=== PATIENT | female | born 1990 | race Caucasian/White ===

== ENCOUNTER → 2018-05-15 | Outpatient (CLI) | payer BC | LOC: COL.RAD 07:24 | DX: Q51.4 Unicornate uterus (principal); Z90.721 Acquired absence of ovaries, unilateral | CPT/HCPCS: A9585 ==

== ENCOUNTER 2018-12-25 07:01 | Outpatient (CLI) | payer BC ==
[~2018-12-25] VITALS: Ht 162.6 cm; Wt 89.0 kg
[2018-12-25 07:17] VITALS: BP 127/78; PULSE 87; TEMP 98.2
[2018-12-25] MEDS ORDERED: JUNEL FE 1/20 21 TAB PO (07:19)
[2018-12-25] MEDS ORDERED: MULTIPLE VITAMI1 TA5 PO (07:20)
--- NOTE | 2018-12-25 09:08 | NUR ---
Pt juanita ACTH stim test well. Pt discharged per ambulation with .
[2018-12-26 12:39] LABS: ADRENOCORTICOTROPIC HORMONE 68 pg/mL (())
== END 2018-12-25 09:08 | disposition home or self-care (01) ==
LOC: EUO 07:01
PROVIDERS: Family Medicine
DX: R79.89 Other specified abnormal findings of blood chemistry (principal)
CPT/HCPCS: J0834

== ENCOUNTER → 2018-12-26 | Outpatient (CLI) | payer BC ==
[~2018-12-26] MED LIST: JUNEL FE 1/20 21 TAB PO; MULTIPLE VITAMI1 TA5 PO
== END ==
LOC: COL.RAD 07:39
DX: D35.2 Benign neoplasm of pituitary gland (principal); D34 Benign neoplasm of thyroid gland; E05.80 Other thyrotoxicosis without thyrotoxic crisis or storm
CPT/HCPCS: A9585

== ENCOUNTER → 2020-01-02 | Outpatient (CLI) | payer BC | LOC: COL.RAD 12:33 | DX: Z31.41 Encounter for fertility testing (principal) | CPT/HCPCS: Q9967 ==

== ENCOUNTER → 2021-03-18 | Outpatient (CLI) | payer BC ==
[~2021-03-18] MED LIST changes: +IBU600 MG PO; +OMEGA-3 1000 MG1 CAP PO; +OSCAL 500 TAB500 MG PO; +PERCOCET 325 MG1 TA2 PO; +PRENATAL MVI PO; +SYNTHROID0.088 MG/T PO; +VITAMIN D31000 I1 PO
== END ==
LOC: ZCOL.LAB 07:10
DX: Z20.822 Contact with and (suspected) exposure to COVID-19 (principal)

== ENCOUNTER 2021-03-23 07:15 | Inpatient (IN) | payer BC ==
[2021-03-23] VITALS (7 sets, daily range): BP systolic 120–142; BP diastolic 63–88; PULSE 82–104; TEMP 98.1
[~2021-03-23] VITALS: Ht 162.6 cm; Wt 96.8 kg
[~2021-03-23 07:15] MED LIST changes: -IBU600 MG PO; -OMEGA-3 1000 MG1 CAP PO; -OSCAL 500 TAB500 MG PO; -PERCOCET 325 MG1 TA2 PO; -PRENATAL MVI PO; -SYNTHROID0.088 MG/T PO; -VITAMIN D31000 I1 PO
--- NOTE | 2021-03-23 19:00 | NUR ---
G1L0. 40.2. Ambulatory to LDR 5 with spouse. Clean gown on. EFM and TOCO explained and applied. Plan of care and induction process explained. Pt denies contractions, leaking of fluids or vaginal bleeding. Reports good movement. 1914: IV started, labs unable to be obtained at this time. LR bolus infusing without difficulty. 1957: Cytotec explained. SVe Closed/Thick/High. Cytotec placed vaginally per providers orders. Pt repositioned to left lateral position and plan of care explained. Questions answered and call light within reach.
[2021-03-23] MEDS ORDERED: PRENATAL MVI PO (19:25)
[2021-03-23] MEDS ORDERED: SYNTHROID0.088 MG/T PO (19:25)
[2021-03-23] MEDS ORDERED: VITAMIN D31000 I1 PO (19:26)
[2021-03-23] MEDS ORDERED: OSCAL 500 TAB500 MG PO (19:26)
[2021-03-23] MEDS ORDERED: OMEGA-3 1000 MG1 CAP PO (19:27)
[2021-03-23 21:02] LABS: BASO # 0.1 K/mm3 (0.0-0.2); BASO % 0.5 % (0.0-2.0); EOS # 0.1 K/mm3 (0.0-0.7); GRAN % 66.6 % (42.2-75.2); HEMOGLOBIN 12.6 g/dl (12.5-16.0); LYMPH # 2.5 K/mm3 (1.2-3.4); LYMPH % 24.2 % (20.0-51.0); MEAN CELL VOLUME 85 fl (80.0-100.0); MEAN CORPUSCULAR HEMOGLOBIN 30 pg (27.0-31.0); MEAN CORPUSCULAR HGB CONC 35 g/dl (33.0-37.0); MEAN PLATELET VOLUME 11.1 fl (7.4-10.4); MONO # 0.8 K/mm3 (0.1-0.6); MONO % 7.2 % (1.7-9.3); PLATELET COUNT 179 K/mm3 (130-400); REDCELL DISTRIBUTION WIDTH-CV 12.8 % (11.5-14.5)
[2021-03-23 21:11] LABS: HEMATOCRIT 35.8 % (37.0-47.0)
[2021-03-24] VITALS (75 sets, daily range): BP systolic 116–160; BP diastolic 56–100; PULSE 67–125; TEMP 97.9–98.7
--- NOTE | 2021-03-24 04:06 | NUR ---
FHR reactive. Pt off monitor to shower.
--- NOTE | 2021-03-24 05:25 | NUR ---
Pitocin explained and started at 2mus/hr per protocol/orders. Questions answered.
--- NOTE | 2021-03-24 08:11 | NUR ---
0745 Difficulty tracing FHR due to maternal position.
--- NOTE | 2021-03-24 09:35 | NUR ---
Difficulty tracing FHR due to maternal position. RN at bedside. Maternal heart rate tracing. Repsoitioning FHR monitor and TOCO.
--- NOTE | 2021-03-24 09:49 | NUR ---
0859 Dr. Howell at bedside.Monitoring FHR strip. Sonogram done. Infant in vertex position. Discusses plan of care with patient. Patient verbalizes understanding. SVE 0/thick.
--- NOTE | 2021-03-24 10:23 | NUR ---
RN AT BEDSIDE ADJUSTING FHR MONITOR.
--- NOTE | 2021-03-24 11:03 | NUR ---
DIFFICULTY TRACING FHR. RN AT BEDSIDE ADJUSTING MONITOR. PT UP TO VOID. WILL CONTINUE TO MONITOR.
--- NOTE | 2021-03-24 14:10 | NUR ---
Dr. Howell at bedside discussing plan of care. Pt agrees to plan of care. Dr. Howell inserts cervical ripening balloon. Vaginal/60cc. Uterine/80cc.
--- NOTE | 2021-03-24 14:13 | NUR ---
1250 Dr Howell on unit reviewing FHR strip. Dr. Howell at bedside assessing patient. SVE closed. Discusses options with pt at this time. Pt agrees to plan of placing cervical ripening balloon. Plan of care/risk factors discussed. 1322 Kruger placed 80cc in uterine balloon. 60 cc in vaginal balloon. Pt tolerates well. Plan of care discussed.
--- NOTE | 2021-03-24 14:59 | NUR ---
PT AMBULATORY TO BATHROOM .
--- NOTE | 2021-03-24 18:03 | NUR ---
Dr. Howell at pt's bedside reviewing plan of care. Assessing burk bulb. Orders to continue pitocin to 30mu/hr. Pt repositioned. PLan of care discussed. Pt verbalizes understanding.
--- NOTE | 2021-03-24 21:05 | NUR ---
at nurses station and reviews FHR strip. Provider in room talking with pt about plan of care. 2113: Kruger bulb removed by . SVE /-. 2117: AROM completed by . Moderate amount of clear fluid noted with loody show. Pitocin turned down to 20mus/hr per providers orders at this time. Plan of care explained to pt and questions answered by . Pericare provided.
[2021-03-25] VITALS (73 sets, daily range): BP systolic 93–169; BP diastolic 47–105; PULSE 72–134; TEMP 97.6–99.9
--- NOTE | 2021-03-25 02:15 | NUR ---
Pts to nurses station stating "Karley just woke up and thinks there is something wrong with her IV." This RN to bedside. Left arm swollen from elbow down. Pt had been sleeping since 0030 and did not notice swelling till waking up. LR and pitocin stopped. IV DC'd. and avionics shop supervisor notified. See physican notification. Warm compresses placed to left arm and arm elevated. Pt states arm "feels tight, no pain." 0245: new IV started and IVF running without difficulties.
--- NOTE | 2021-03-25 02:55 | NUR ---
FHR reactive. Pitocin restarted at 2mus
--- NOTE | 2021-03-25 06:35 | NUR ---
0635-Recieved bedside shift report from PAT Bonilla. Patient sitting upright in chair. Requests epidural. KECIA Disla notified. Patient off EFM to restroom. 0645-Returns to bedside. Sitting upright for epidural placement. 0653-KECIA Disla to bedside. 0705-Test dose per KECIA Disla see anesthesia records. VSS, tolerated procedure well. Repositioned WL. Updated on plan of care and safety.
--- NOTE | 2021-03-25 07:35 | NUR ---
Dr. Howell on unit. Reviews FHR monitor. No new orders. Will be in to see patient and check cervix in the next hour.
--- NOTE | 2021-03-25 16:10 | NUR ---
1610-Dr. Howell on unit. Reviews FHR monitor. SVE by , no change. C/S discussed with patient. Plan to proceed agreed by patient. Abdomen cleansed mons pubis clipped. KECIA Disla to patient room and dosed epidural. See anesthesia records. 1618-Patient to OR via bed.
--- NOTE | 2021-03-25 17:35 | NUR ---
Recieved report from CHILANGO Disla. Patient to PACU via bed. A&O x4 denies pain. VSS, see flow record. Abdominal dressing C/D/I. Binder applied. Fundal massage firm, lochia moderate no clots. SCDs BLE. IVF infusing to right hand. Kruger to DD. Updated on plan of care and remained with patient per protocol.
[2021-03-26 02:10] VITALS: BP 123/82; PULSE 78; TEMP 98
[2021-03-26 05:05] VITALS: BP 121/79; PULSE 70; TEMP 97.5
[2021-03-26 07:29] LABS: HEMOGLOBIN 11.2 g/dl (12.5-16.0)
[2021-03-26 07:40] VITALS: BP 127/82; PULSE 72; TEMP 98.2
[2021-03-26 17:00] VITALS: BP 123/68; PULSE 93; TEMP 97.3
[2021-03-26 22:00] VITALS: BP 124/64; PULSE 87; TEMP 98.4
[2021-03-27 04:53] VITALS: BP 128/79; PULSE 83; TEMP 97.7
[2021-03-27 10:00] VITALS: BP 139/95; PULSE 99; TEMP 98
[2021-03-27] MEDS ORDERED: IBU600 MG PO (10:30)
[2021-03-27] MEDS ORDERED: PERCOCET 325 MG1 TA2 PO (10:31)
== END 2021-03-27 17:00 | disposition home or self-care (01) | DRG 786 ==
LOC: OB 07:15 → LDR 18:56 → OB 03-25 18:15
PROVIDERS: ADMIT Obstetrics & Gynecology
PROC: 10907ZC Drainage of Amniotic Fluid, Therapeutic from Products of Conception, Via Natural or Artificial Opening (ICD-10-PCS; 2021-03-23)
PROC: 3E033VJ Introduction of Other Hormone into Peripheral Vein, Percutaneous Approach (ICD-10-PCS; 2021-03-23)
PROC: 3E0P7VZ Introduction of Hormone into Female Reproductive, Via Natural or Artificial Opening (ICD-10-PCS; 2021-03-23)
PROC: 10D00Z1 Extraction of Products of Conception, Low, Open Approach (ICD-10-PCS; principal; 2021-03-25)
PROC: 3E0334Z Introduction of Serum, Toxoid and Vaccine into Peripheral Vein, Percutaneous Approach (ICD-10-PCS; 2021-03-27)
DX: O48.0 Post-term pregnancy (principal); O41.1230 Chorioamnionitis, third trimester, not applicable or unspecified; O72.1 Other immediate postpartum hemorrhage; E71.311 Medium chain acyl CoA dehydrogenase deficiency; O99.12 Other diseases of the blood and blood-forming organs and certain disorders involving the immune mechanism complicating childbirth; D68.51 Activated protein C resistance; O62.0 Primary inadequate contractions; O99.284 Endocrine, nutritional and metabolic diseases complicating childbirth; E03.9 Hypothyroidism, unspecified; O16.4 Unspecified maternal hypertension, complicating childbirth; O69.81X0 Labor and delivery complicated by cord around neck, without compression, not applicable or unspecified; O99.719 Diseases of the skin and subcutaneous tissue complicating pregnancy, unspecified trimester; L40.9 Psoriasis, unspecified; O99.892 Other specified diseases and conditions complicating childbirth; R00.0 Tachycardia, unspecified; Q50.01 Congenital absence of ovary, unilateral; Q50.6 Other congenital malformations of fallopian tube and broad ligament; Z3A.40 40 weeks gestation of pregnancy; Z37.0 Single live birth
CPT/HCPCS: J0171; J0690; J1100; J1580; J1885; J2405; J2590; J2791; J7120

== ENCOUNTER 2023-08-23 05:34 | Inpatient (IN) | payer BC ==
[~2023-08-23] VITALS: Ht 162.6 cm; Wt 102.7 kg
[2023-08-23] VITALS (17 sets, daily range): BP systolic 91–125; BP diastolic 54–71; PULSE 78–101; TEMP 97.7–98.3
[~2023-08-23 05:34] MED LIST changes: +IBU600 MG PO; +LR 1,000 ML IV SCH; +OMEGA-3 1000 MG1 CAP PO; +OSCAL 500 TAB500 MG PO; +Ondansetron 4 MG/2 ML VIAL IV SCH; +PERCOCET 325 MG1 TA2 PO; +PRENATAL MVI PO; +SYNTHROID0.088 MG/T PO; +VITAMIN D31000 I1 PO
--- NOTE | 2023-08-23 06:15 | NUR ---
Report received from PAT Orozco and care assumed in the admission process for scheduled repeat . EFM and toco monitor already started and IV fluids infusing. Plan of care for scheduled repeat reviewed with pt and at the bedside. Call light within reach.
[2023-08-23 06:20] LABS: BASO % 0.2 % (0.0-2.0); EOS # 0.1 K/mm3 (0.0-0.7); EOS % 0.8 % (0.0-4.0); GRAN % 60.6 % (42.2-75.2); HEMATOCRIT 38.8 % (37.0-47.0); HEMOGLOBIN 14.2 g/dl (12.5-16.0); LYMPH % 29.8 % (20.0-51.0); MEAN CELL VOLUME 85 fl (80.0-100.0); MEAN CORPUSCULAR HEMOGLOBIN 31 pg (27-31); MEAN CORPUSCULAR HGB CONC 37 g/dl (33.0-37.0); MEAN PLATELET VOLUME 10.4 fl (7.4-10.4); MONO # 0.8 K/mm3 (0.1-0.6); MONO % 8.2 % (1.7-9.3); PLATELET COUNT 240 K/mm3 (130-400); RED BLOOD COUNT 4.56 M/mm3 (4.10-5.30); REDCELL DISTRIBUTION WIDTH-CV 12.2 % (11.5-14.5)
[2023-08-23] MEDS ORDERED: Ondansetron 4 MG/2 ML VIAL ONE (06:54)
[2023-08-23] MEDS ORDERED: dexAMETHasone 10 MG/ML VIAL ONE (06:54)
[2023-08-23] MEDS ORDERED: Ketorolac 30 MG/ML VIAL ONE (06:54)
[2023-08-23] MEDS ORDERED: Oxytocin 10 UNITS/ML VIAL ONE (06:54)
[2023-08-23] MEDS ORDERED: NS 10 ML IV ONE (06:54)
[2023-08-23] MEDS ORDERED: ePHEDrine 50 MG/ML VIAL ONE (06:59)
[2023-08-23] MEDS ORDERED: MASON NATURAL2000 IU PO (07:21)
[2023-08-23] MEDS ORDERED: Ondansetron 4 MG/2 ML VIAL IV PRN ×2 (07:30→09:45)
[2023-08-23] MEDS ORDERED: Morphine 4 MG/ML VIAL IV PRN ×2 (07:30→09:45)
[2023-08-23] MEDS ORDERED: Phenylephrine 10 MG/ML VIAL ONE (07:59)
[2023-08-23] MEDS ORDERED: LR 1,000 ML IV ONE (07:59)
[2023-08-23] MEDS ORDERED: Loratadine 10 MG TAB PO PRN (08:30)
[2023-08-23] MEDS ORDERED: Magnes Hydrox (MOM) 80 MG/ML 30 ML CUP PO PRN (08:30)
[2023-08-23] MEDS ORDERED: Prenatal Vitamins/Iron/FA TAB PO SCH ×2 (09:00→18:00)
[2023-08-23] MEDS ORDERED: Measles/Mumps/Rubella Virus Vaccine Live w Diluent 0.5 ML VIAL SQ SCH (09:45)
[2023-08-23] MEDS ORDERED: Acetaminophen 500 MG TAB PO SCH (09:45)
[2023-08-23] MEDS ORDERED: LR 1,000 ML IV PRN (09:45)
[2023-08-23] MEDS ORDERED: Naloxone 0.4 MG/ML VIAL IV PRN (09:45)
[2023-08-23] MEDS ORDERED: oxyCODONE 5 MG TAB PO PRN ×2 (09:45→14:00)
[2023-08-23] MEDS ORDERED: Ibuprofen 600 MG TAB PO SCH (14:21)
[2023-08-23] MEDS ORDERED: Sennosides/Docusate 8.6-50 MG TAB PO SCH (17:00)
[2023-08-23] MEDS ORDERED: traZODone 50 MG TAB PO PRN (21:00)
[2023-08-23] MEDS ORDERED: Rho(D) Imm Globulin 1,500 UNITS (300 MCG)/2 ML SYRINGE IV\\IM SCH (22:00)
[2023-08-24 00:05] VITALS: BP 119/68; PULSE 80; TEMP 97.9
[2023-08-24 04:30] VITALS: BP 98/64; PULSE 78; TEMP 97.8
--- NOTE | 2023-08-24 04:38 | NUR ---
pt requested to take her levothyroxine early so she has an empty stomach because she has pain meds due at 0600 and didnt want to take them together.
[2023-08-24 06:30] LABS: HEMATOCRIT 33.5 % (37.0-47.0); HEMOGLOBIN 11.9 g/dl (12.5-16.0)
[2023-08-24] MEDS ORDERED: IBU600 MG PO (07:38)
[2023-08-24] MEDS ORDERED: ROXICODONE 55 MG/TAB PO (07:40)
[2023-08-24] MEDS ORDERED: TYLENOL 500MG500 MG PO (07:40)
[2023-08-24 08:30] VITALS: BP 82/38; PULSE 89; TEMP 97.4
--- NOTE | 2023-08-24 09:06 | NUR ---
Initial visit; Parents thanked Marketing Database Coordinator for offering Congratulations and God's blessings for the of their son. Marketing Database Coordinator thanked family for choosing [facility] and stated that their son is blessed to become such an important member of their family.
--- NOTE | 2023-08-24 15:49 | NUR ---
REPORT GIVEN TO NAYELI BERNARD RN
[2023-08-24 17:00] VITALS: BP 106/60; PULSE 83; TEMP 98.4
[2023-08-24 20:45] VITALS: BP 100/58; PULSE 84; TEMP 98.2
[2023-08-25 00:30] VITALS: TEMP 97.9
[2023-08-25 09:30] VITALS: BP 135/59; PULSE 99; TEMP 98.6
[2023-08-25 17:00] VITALS: BP 129/80; PULSE 112; TEMP 98.2
[2023-08-25 20:45] VITALS: BP 120/80; PULSE 90; TEMP 97.6
--- NOTE | 2023-08-26 07:15 | NUR ---
RN DISCUSSES POC WITH PT, PT VERBALIZES UNDERSTANDING AND HAS NO QUESTIONS AT THIS TIME
[2023-08-26 07:18] VITALS: BP 108/67; PULSE 80; TEMP 98.2
[2023-08-26 16:20] VITALS: BP 110/62; PULSE 68
[2023-08-26] MEDS ORDERED: Acetaminophen 500 MG TAB PO SCH (17:15)
--- NOTE | 2023-08-26 18:30 | NUR ---
Report recieved at this time. Resting while sitting on the edge of the bed. Visitors at bedside. POC reviewed and questions invited and declined.
[2023-08-26 19:30] VITALS: BP 116/80; PULSE 67; TEMP 98.4
[2023-08-27 08:30] VITALS: BP 122/85; PULSE 73; TEMP 99.8
== END 2023-08-27 15:15 | disposition home or self-care (01) | DRG 787 ==
LOC: OB 05:34
PROVIDERS: ADMIT Obstetrics & Gynecology
PROC: 10D00Z1 Extraction of Products of Conception, Low, Open Approach (ICD-10-PCS; principal; 2023-08-23)
PROC: 3E0234Z Introduction of Serum, Toxoid and Vaccine into Muscle, Percutaneous Approach (ICD-10-PCS; 2023-08-24)
DX: O34.211 Maternal care for low transverse scar from previous cesarean delivery (principal); E71.311 Medium chain acyl CoA dehydrogenase deficiency; Z37.0 Single live birth; O99.284 Endocrine, nutritional and metabolic diseases complicating childbirth; E03.9 Hypothyroidism, unspecified; O26.899 Other specified pregnancy related conditions, unspecified trimester; O99.214 Obesity complicating childbirth; E66.9 Obesity, unspecified; O69.81X0 Labor and delivery complicated by cord around neck, without compression, not applicable or unspecified; Z3A.39 39 weeks gestation of pregnancy
CPT/HCPCS: J0665; J0690; J1100; J1885; J2371; J2405; J2590; J2791; J7120